=== PATIENT | male | born 1990 | race Hispanic/Latino ===

== ENCOUNTER 2019-02-16 04:14 | Emergency (ER) | payer SELFPAY ==
[2019-02-16] MEDS ORDERED: Bacitracin 1 PK ONE (05:00)
== END 2019-02-16 05:18 | disposition home or self-care (01) ==
LOC: ERS 04:14
DX: S61.411A Laceration without foreign body of right hand, initial encounter (principal); W26.0XXA Contact with knife, initial encounter
CPT/HCPCS: 12002